=== PATIENT | male | born 1940 | race Caucasian/White ===

== ENCOUNTER 2021-10-20 08:34 | Day surgery (SDC) | payer MEDICARE, OTHER ==
[~2021-10-20] VITALS: Ht 180.3 cm; Wt 95.0 kg
[~2021-10-20 08:34] MED LIST: ALLO100 PO; AMLO5 PO; ELIQUIS2.5 M1 PO; GLIP5 PO; LISI20 PO; METF500 PO; Prazosin HCl5 MG PO; ZOCOR20 MG PO
--- NOTE | 2021-10-20 11:40 | NUR ---
PATIENT SITTING UP IN CHAIR. LEFT PACER SITE SOFT AND NONTENDER, NO HEMATOMA, NO BLEEDING. DRESSING D&I. ICE PACK PLACED.
--- NOTE | 2021-10-20 11:55 | NUR ---
PATIENT TAKEN TO IMAGING VIA WHEELCHAIR FOR POST PACEMAKER CXR. AND RETURNED TO [facility] RECOVERY ROOM.
--- NOTE | 2021-10-20 12:10 | NUR ---
PATIENT EATING LUNCH
--- NOTE | 2021-10-20 14:50 | NUR ---
PT AMB TO BTR OK, DRESSED, IV ANCEF 1 GM GIVEN, DR DAS IN TO DISCUSS PLAN OF CARE WITH PT AND DAUGHTER, SLING PLACED ON L ARM, NEW ICE BAG GIVEN TO TAKE HOME, PT DC'D BY WC, DAUGHTER DRIVING PT BACK TO ASSISTED LIVING
== END 2021-10-20 15:00 | disposition home or self-care (01) ==
LOC: MHTC 08:34
DX: R00.1 Bradycardia, unspecified (principal); I13.10 Hypertensive heart and chronic kidney disease without heart failure, with stage 1 through stage 4 chronic kidney disease, or unspecified chronic kidney disease; N18.9 Chronic kidney disease, unspecified; E11.22 Type 2 diabetes mellitus with diabetic chronic kidney disease; Z79.84 Long term (current) use of oral hypoglycemic drugs
CPT/HCPCS: 33207; 71046; 99152; 99153; C1769; C1786; C1894; C1898; J0690; J1580; J1644; J2250; J3010; J7030; J7040